=== PATIENT | male | born 2000 | race African-American/Black ===

== ENCOUNTER 2020-07-04 17:15 | Emergency (ER) | payer OTHER ==
[~2020-07-04] VITALS: Ht 175.3 cm; Wt 79.0 kg
[2020-07-04] MEDS ORDERED: ONDANSETRON 4MG/2ML VIAL IV ONE (17:45)
[2020-07-04] MEDS ORDERED: NS 1,000 ML IV ONE (17:45)
[2020-07-04 18:18] LABS: BASO % 0.6 % (0.0-1.0); EOS % 0.2 % (0.0-3.0); HEMATOCRIT 42.9 % (42.0-52.0); HEMOGLOBIN 14.1 g/dl (13.5-17.5); LYMPH # 1.8 10^3/uL (1.5-5.0); LYMPH % 33.2 % (24.0-44.0); MEAN CORPUSCULAR HEMOGLOBIN 27.8 pg (27.0-33.0); MEAN CORPUSCULAR HGB CONC 32.9 g/dl (32.0-36.5); MEAN CORPUSCULAR VOLUME 84.6 fl (80.0-96.0); MONO # 0.6 10^3/uL (0.0-0.8); MONO % 10.1 % (0.0-5.0); NEUTROPHILS % 55.7 % (36.0-66.0); PLATELET COUNT, AUTOMATED 314 10^3/uL (150-450); RED BLOOD COUNT 5.07 10^6/uL (4.30-6.10); WHITE BLOOD COUNT 5.4 10^3/uL (4.0-10.0)
[2020-07-04 18:52] LABS: ALBUMIN 4.6 GM/DL (3.2-5.2); ALT/SGPT 35 U/L (12-78); BILIRUBIN,DIRECT 0.2 MG/DL (0.0-0.2); BILIRUBIN,TOTAL 0.8 MG/DL (0.2-1.0); BLOOD UREA NITROGEN 14 MG/DL (7-18); CALCIUM LEVEL 9.7 MG/DL (8.5-10.1); CARBON DIOXIDE LEVEL 28 MEQ/L (21-32); CHLORIDE LEVEL 107 MEQ/L (98-107); CPK CREATINE PHOSPHOKINASE 792 U/L (39-308); CREATININE FOR GFR 1.52 MG/DL (0.70-1.30); GLUCOSE, FASTING 102 MG/DL (70-100); POTASSIUM SERUM 3.9 MEQ/L (3.5-5.1); SODIUM LEVEL 137 MEQ/L (136-145); TOTAL PROTEIN 8.4 GM/DL (6.4-8.2)
[2020-07-04] MEDS ORDERED: ONDA4TAB6 PO (19:00)
[2020-07-04 19:51] VITALS: BP 158/88
== END 2020-07-04 19:53 | disposition home or self-care (01) ==
LOC: M ED 17:15
DX: E86.0 Dehydration (principal); R94.4 Abnormal results of kidney function studies; R11.2 Nausea with vomiting, unspecified
CPT/HCPCS: 80048; 80076; 82550; 85025; 96361; 96374; 99284; J2405

== ENCOUNTER 2021-08-14 15:43 | Emergency (ER) | payer OTHER ==
[~2021-08-14] VITALS: Ht 175.3 cm; Wt 82.6 kg
[~2021-08-14 15:43] MED LIST: ONDA4TAB6 PO
[2021-08-14 18:18] LABS: BASO % 0.9 % (0.0-1.0); EOS # 0.1 10^3/uL (0.0-0.5); EOS % 2.1 % (0.0-3.0); HEMATOCRIT 41.8 % (42.0-52.0); HEMOGLOBIN 13.8 g/dl (13.5-17.5); LYMPH # 2.1 10^3/uL (1.5-5.0); MEAN CORPUSCULAR HEMOGLOBIN 27.8 pg (27.0-33.0); MEAN CORPUSCULAR VOLUME 84.3 fl (80.0-96.0); MONO # 0.4 10^3/uL (0.0-0.8); MONO % 9.3 % (2.0-8.0); NEUTROPHILS # 1.6 10^3/uL (1.5-8.5); NEUTROPHILS % 37.7 % (36.0-66.0); PLATELET COUNT, AUTOMATED 261 10^3/uL (150-450); RED BLOOD COUNT 4.96 10^6/uL (4.30-6.10); WHITE BLOOD COUNT 4.3 10^3/uL (4.0-10.0)
--- NOTE | 2021-08-14 18:21 | REPVR ---
PROCEDURE INFORMATION: Exam: CT Head Without Contrast Exam date and time: 08/14/2021 6:03 PM Age: 21 years old Clinical indication: Altered mental status/memory loss TECHNIQUE: Imaging protocol: Computed tomography of the head without contrast. Radiation optimization: All CT scans at this facility use at least one of these dose optimization techniques: automated exposure control; mA and/or kV adjustment per patient size (includes targeted exams where dose is matched to clinical indication); or iterative reconstruction. COMPARISON: No relevant prior studies available. FINDINGS: Brain: Normal. No hemorrhage. Unremarkable white matter. No mass effect. Cerebral ventricles: No ventriculomegaly. Paranasal sinuses: Visualized sinuses are unremarkable. No fluid levels. Mastoid air cells: Visualized mastoid air cells are well aerated. Bones/joints: Unremarkable. No acute fracture. Soft tissues: Unremarkable. IMPRESSION: No acute intracranial abnormality. Electronically signed by: Heber Howard On 08/14/2021 18:21:09 PM
[2021-08-14 19:02] LABS: ACETAMINOPHEN LEVEL < 2.0 UG/ML (10.0-30.0); ALBUMIN 3.9 GM/DL (3.2-5.2); ALT/SGPT 23 U/L (12-78); BILIRUBIN,DIRECT 0.1 MG/DL (0.0-0.2); BILIRUBIN,TOTAL 0.3 MG/DL (0.2-1.0); CK-MB VALUE MASS < 1.0 NG/ML (<3.6); CPK CREATINE PHOSPHOKINASE 251 U/L (39-308); ETHYL ALCOHOL (ETHANOL) < 0.003 % (0.000-0.010); SALICYLATE LEVEL < 1.7 MG/DL (5.0-30.0); TOTAL PROTEIN 7.5 GM/DL (6.4-8.2); TROPONIN I < 0.02 NG/ML (< 0.10)
[2021-08-14 19:35] LABS: AMPHETAMINES LEVEL URINE NEGATIVE (NEGATIVE); BARBITURATES URINE NEGATIVE (NEGATIVE); BENZODIAZEPINES URINE NEGATIVE (NEGATIVE); CANNABINOIDS URINE NEGATIVE (NEGATIVE); COCAINE METABOLITE URINE NEGATIVE (NEGATIVE); METHADONE URINE NEGATIVE (NEGATIVE); OPIATES URINE NEGATIVE (NEGATIVE); PHENCYCLIDINE URINE NEGATIVE (NEGATIVE)
--- NOTE | 2021-08-14 20:01 | REP ---
INDICATION: elevated creatinine x 2. COMPARISON: None. TECHNIQUE: Urinary tract sonography. FINDINGS: Scanning at the level of the urinary bladder shows no abnormality. Renal cortical echogenicity pattern is normal bilaterally and contours are smooth. There is no evidence of hydronephrosis, cyst, mass, or calculus in either kidney. The right kidney measures 9.9 x 3.5 x 3.0 cm. Left renal dimensions are 10.4 x 3.9 x 5.3 cm. IMPRESSION: Normal urinary tract sonography. <Electronically signed by Percy Benton > 08/14/211957
--- NOTE | 2021-08-14 20:08 | ECGEPIP ---
[facility] - ED Test Date: 2021-08-14 Pat Name: SHAR PAEZ Department: Room: - Gender: Male [employer]: RENNY : 2000 Requested By: MORGAN YOUNG PA-C Order Number: [id number] Reading MD: Janet Zamudio Measurements Intervals [place] Rate: 60 P: 62 SD: 188 QRS: 46 QRSD: 84 T: 35 QT: 374 QTc: 374 Interpretive Statements Normal sinus rhythm with sinus arrhythmia early repolarization no prior Electronically Signed on 08-14-2021 20:08:22 EDT by Janet Zamudio
[2021-08-14 21:09] VITALS: BP 121/65
== END 2021-08-14 21:10 | disposition home or self-care (01) ==
LOC: M ED 15:43
DX: R41.82 Altered mental status, unspecified (principal); N28.9 Disorder of kidney and ureter, unspecified